=== PATIENT | male | born 1955 | race Caucasian/White ===

== ENCOUNTER → 2016-09-14 | Outpatient (CLI) | payer BC ==
[~2016-09-14] MED LIST: OMEP10SU PO; WRF2T PO
--- NOTE | 2016-09-14 10:39 | Diagnostic Imaging Report ---
PROCEDURE: CT abdomen and pelvis without contrast. TECHNIQUE: Multiple contiguous axial images were obtained through the abdomen and pelvis without the use of intravenous contrast. INDICATION: Hematuria, left flank pain. COMPARISON: None available. FINDINGS: The lung bases are clear. No pericardial or pleural effusion. No free intraperitoneal air or fluid. Kidneys are symmetric in size. No renal or ureteral calculi. No obstructive uropathy. Urinary bladder is incompletely distended with mild circumferential wall thickening. There is a subcentimeter hypodensity which is well-circumscribed in the anterior aspect of the left kidney, which is too small to characterize, but likely a cyst. Evaluation of the abdominal viscera is limited without IV contrast. Allowing for this, liver demonstrates diffuse hypoattenuation compatible with hepatic steatosis. No focal hepatic lesion. Gallbladder is distended without radiopaque gallstones. Spleen is normal. The pancreas and adrenals are also normal. No bowel obstruction. The appendix is normal in caliber without surrounding inflammatory changes. No pericolonic inflammatory changes. Prostate is not enlarged. Low-attenuation mural thickening in the transverse and portions of the descending colon suggests subacute/chronic colitis. No evidence of active/acute colitis. Normal caliber abdominal aorta. No abdominal or pelvic lymphadenopathy. Normal regional skeleton. IMPRESSION: 1. No urinary tract calculi or obstructive uropathy. Mild diffuse bladder wall thickening could be due to incomplete distention. Correlation with urinalysis to assess for cystitis is recommended. 2. No active inflammatory process in the abdomen or pelvis. 3. Low-attenuation mural thickening in the transverse and portion of the descending colon indicates subacute to chronic colitis. 4. Diffuse hepatic steatosis. Dictated by: Dictated on workstation # [id number]
== END ==
LOC: RAD 09:35
PROVIDERS: ATTEND Family Medicine
DX: R31.9 Hematuria, unspecified (principal); K76.0 Fatty (change of) liver, not elsewhere classified
CPT/HCPCS: 74176

== ENCOUNTER → 2016-09-26 | Outpatient (CLI) | payer BC ==
[2016-09-26 15:14] LABS: ANION GAP 13.7 MEQ/L (3-15)
== END ==
LOC: LAB 14:30
PROVIDERS: ATTEND Urology
DX: R31.29 Other microscopic hematuria (principal)
CPT/HCPCS: 36415; 80048; 88112

== ENCOUNTER → 2016-09-29 | Outpatient (CLI) | payer BC | LOC: RAD 07:49 | PROVIDERS: ATTEND Urology | DX: R31.29 Other microscopic hematuria (principal); N28.1 Cyst of kidney, acquired; K76.0 Fatty (change of) liver, not elsewhere classified | CPT/HCPCS: 74178; Q9967 ==

== ENCOUNTER 2016-10-10 08:34 | Day surgery (SDC) | payer BC ==
[~2016-10-10] VITALS: Ht 175.3 cm; Wt 102.0 kg
[~2016-10-10 08:34] MED LIST changes: +LACTATED RINGERS 1,000 ML IV SCH; +LEVOFLOXACIN 500 MG TAB (LEVAQUIN) PO SCH; -OMEP10SU PO; +SODIUM CHLORIDE FLUSH 3 ML SYR IV PRN; -WRF2T PO
[2016-10-10] MEDS ORDERED: LEVOFLOXACIN 500 MG TAB (LEVAQUIN) PO ONE (12:00)
[2016-10-10 12:02] VITALS: BP 139/89
[2016-10-10] MEDS ORDERED: LIDOCAINE 2% (XYLOCAINE) 10 ML UROJECT MM ONE (12:11)
[2016-10-10 12:44] VITALS: BP 127/85
== END 2016-10-10 12:54 | disposition home or self-care (01) ==
LOC: ASC 08:34
PROVIDERS: ATTEND Urology
DX: R31.29 Other microscopic hematuria (principal); N35.9 Urethral stricture, unspecified; N40.0 Benign prostatic hyperplasia without lower urinary tract symptoms; K21.9 Gastro-esophageal reflux disease without esophagitis; Z87.891 Personal history of nicotine dependence